=== PATIENT | male | born 1990 | race Caucasian/White ===

== ENCOUNTER 2017-05-29 12:49 | Emergency (ER) | payer OTHER ==
[~2017-05-29] VITALS: Ht 175.3 cm; Wt 65.8 kg
[~2017-05-29 12:49] MED LIST: AMOXICILLIN500 MG PO; BACTRIM DS TAB1 EACH PO; BENZONATATE200 M1 PO; CLINDAMYCIN300 MG PO; CYCLOBENZAPRINE10 M1 PO; GABAPENTIN300 M2 PO; HYDROCODONE/ACE1 TA1 PO; IBUPROFEN800 M1 PO; KEFLEX500 M1 PO; NAPROSYN500 M1 PO; PROVENTIL HFA6.7 GM INH; SERTRALINE HCL50 MG PO; VICODIN 5-3001 EACH PO; ZITHROMAX250 M2 PO
--- NOTE | 2017-05-29 13:56 | ED GI/GU/ABDOMINAL COMPLAINT ---
History of Present Illness General Chief Complaint: Abdominal Pain/Flank Pain Stated Complaint: ABD PAIN Source: patient Exam Limitations: no limitations Vital Signs & Intake/Output Vital Signs & Intake/Output Vital Signs Date Time Temp Pulse Resp B/P B/P Pulse O2 O2 Flow FiO2 Mean Ox Delivery Rate 05/29 1548 98.5 73 19 132/69 100 Room Air 05/29 1300 98.5 75 18 137/88 99 Room Air Allergies Coded Allergies: NO KNOWN ALLERGIES (08/24/15) Reconcile Medications Bupropion HCl (Bupropion XL) 300 MG TAB.ER.24H 1 TAB PO QAM MENTAL HEALTH ( Reported) Hyoscyamine (Levsin) 0.125 MG TABLET 1 TAB PO Q4 PRN ABDOMINAL SPASMS Methadone HCl 10 MG/ML ORAL.CONC 40 MG PO DAILY MAINTENCE (Reported) Ondansetron (Zofran Odt) 4 MG TAB.RAPDIS 1 TAB SL TID PRN NAUSEA Propranolol HCl 10 MG TABLET 1 TAB PO BID PRN ANXIETY (Reported) Quetiapine Fumarate 100 MG TABLET 1 TAB PO QPM SLEEP (Reported) Quetiapine Fumarate 50 MG TABLET 1 TAB PO QPM SLEEP (Reported) Triage Note: PT TO ED FOR INTERMITTENT SHARP ABD PAIN AND NAUSEA X 3 DAYS Triage Nurses Notes Reviewed? yes Onset: Gradual Duration: day(s): (3) Timing: no prior history Quality/Severity: cramping, sharpness Severity Numbers: 6 Location: left lower quadrant Radiation: no radiation Activities at Onset: none Past Sexual History: Unobtainable at this time No Modifying Factors: none HPI: Patient is a 26-year-old male presenting to the emergency department with chief complaint of lower abdominal pain crampy, intermittently sharp and stabbing a single amphetamine S3 days. Patient reports associated nausea but no vomiting. No change in bowel habits. No constipation or diarrhea. Denies taking anything to help with symptoms at home. Nothing seems to make it better or worse. No sick contacts or recent travel. Denies recent antibiotic use. Denies any abdominal surgeries in the past. Does not take any daily medications. No fevers or chills chest pain or shortness of breath. No blood in the stool. (Zoey Hassan) Past History Travel History Traveled to [place] past 21 day No Medical History Any Pertinent Medical History? 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 No (Zoey Hassan) Review of Systems Review of Systems Constitutional: Reports: no symptoms. Comments Review of systems: See HPI, All other systems negative. Constitutional, no weight loss HEENT: No visual changes no sore throat no congestion Cardiovascular: No chest pain ,palpitation , orthopnea or ankle swelling Skin, no jaundice no rashes Respiratory: No dyspnea cough sputum or hemoptysis GI: no vomiting : No dysuria No hematuria Muscle skeletal: no back pain, no neck pain, Neurologic: No numbness no confusion no headache Psych: No stress anxiety or depression,. Heme/endocrine: No bruising no bleeding no polyuria or polydipsia Immunology: No splenectomy or history of AIDS (Zoey Hassan) Physical Exam Physical Exam General Appearance: well developed/nourished, no apparent distress, alert, awake , comfortable Gastrointestinal: normal bowel sounds, soft, tenderness Comments: Well-developed well-nourished person in no acute distress HEENT: Normal atraumatic, normocephalic, moist oral mucosa. Neck: Normal inspection Back: Nontender, no CVA tenderness. Cardiovascular: Regular rate and rhythms no murmurs rubs or gallops, normal JVP Respiratory: Chest nontender. No respiratory distress.breath sounds clear to auscultation bilaterally Abdomen: Soft, mild tenderness to palpation in the left lower quadrant and periumbilical region without rebound or guarding, nondistended, no appreciable organomegaly. Normal bowel sounds. No ascites Extremity: No edema Neuro: Alert oriented x3 Skin: No appreciable rash on exposed skin, skin is warm and dry. Psych: Mood and affect is normal, memory and judgment is normal. Core Measures ACS in differential dx? No Sepsis Present: No Sepsis Focused Exam Completed? No (Zoey Hassan) Progress Differential Diagnosis: appendicitis, cholecystitis, diverticulitis, inflamm bowel dis, pancreatitis, ureterolithiasis, UTI/pyelo, gastritis, gastroenteritis Plan of Care: Orders Procedure Date/time Status URINALYSIS 05/29 141 Complete LIPASE 05/29 141 Complete C-REACTIVE PROTEIN 05/29 1409 Complete COMPREHENSIVE METABOLIC PANEL 05/29 1409 Complete CBC WITHOUT DIFFERENTIAL 05/29 1409 Complete Laboratory Tests 05/29/17 1548: Urine Color YEL, Urine Clarity CLEAR, Urine pH 6.0, Ur Specific [place] 1.025, Urine Protein NEG, Urine Ketones NEG, Urine Nitrite NEG, Urine Bilirubin NEG, Urine Urobilinogen 0.2, Ur Leukocyte Esterase NEG, Ur Microscopic EXAM NOT REQUIRED, Urine Hemoglobin NEG, Urine Glucose NEG 05/29/17 1428: Anion Gap 12, Estimated GFR > 60, BUN/Creatinine Ratio 10.0, Glucose 95, Calcium 9.6, Total Bilirubin 0.4, AST 58, ALT 184 H, Alkaline Phosphatase 53, C- Reactive Prot, Quant < 0.5, Total Protein 7.4, Albumin 4.6, Globulin 2.8, Albumin/Globulin Ratio 1.6, Lipase 62, CBC w Diff NO MAN DIFF REQ, RBC 4.74, MCV 91.5, MCH 30.0, RDW 14.2, MPV 7.7, Gran % 57.3, Lymphocytes % 34.5, Monocytes % 6.8, Eosinophils % 1.2, Basophils % 0.2, Absolute Granulocytes 4.0, Absolute Lymphocytes 2.4, Absolute Monocytes 0.5, Absolute Eosinophils 0.1, Absolute Basophils 0, PUBS MCHC 32.8 L 05/29/2017 4:19:11 PM patient feeling improved after IV Toradol and IV acetaminophen. Patient no longer nauseous. Tolerating by mouth without vomiting. Patient informed of all lab work results. I feel like we can hold off on imaging at this time his blood work is unremarkable and patient is nontender at this time. Patient educated on signs and symptoms return. He was informed that if symptoms persist or worsen he may need a CAT scan. Patient will return if symptoms worsen. I'll question Sansert. Initial ED EKG: none (Pedro MARSHALL,Zoey) Departure Departure Time of Disposition: 1615 Disposition: HOME OR SELF CARE Condition: Stable Clinical Impression Primary Impression: Abdominal pain Qualifiers: Abdominal location: left lower quadrant Qualified Code: R10.32 - Left lower quadrant pain Secondary Impressions: Nausea Referrals: Patient Has No Primary Care Dr (PCP/Family) Additional Instructions: Follow-up with your primary care physician in the next 2-4 days for reevaluation. Increase fluids. Take Zofran as prescribed for nausea. Take Levsin help with abdominal discomfort. Return for worsening symptoms or concerns. Departure Forms: Customer Survey D/C INS-APPENDICITIS EXCLUSION General Discharge Information Prescriptions: Current Visit Scripts Hyoscyamine (Levsin) 1 TAB PO Q4 PRN ABDOMINAL SPASMS #40 TAB Ondansetron (Zofran Odt) 1 TAB SL TID PRN NAUSEA #10 TAB (Zoey Hassan) PA/WAREHOUSE INCENTIVE SELECTOR Co-Sign Statement Statement: ED Attending supervision documentation- [] I saw and evaluated the patient. I have also reviewed all the pertinent lab results and diagnostic results. I agree with the findings and the plan of care as documented in the PA's/WAREHOUSE INCENTIVE SELECTOR's documentation. [X] I have reviewed the ED Record and agree with the PA's/WAREHOUSE INCENTIVE SELECTOR's documentation. [] Additions or exceptions (if any) to the PAs/WAREHOUSE INCENTIVE SELECTOR's note and plan are summarized below: [] (Micah Levy DO)
[2017-05-29] MEDS ORDERED: METHADONE10 MG/1 M2 PO (14:15)
[2017-05-29] MEDS ORDERED: QUETIAPINE FUM100 M1 PO (14:16)
[2017-05-29] MEDS ORDERED: QUETIAPINE FUMA50 M1 PO (14:16)
[2017-05-29] MEDS ORDERED: BUPROPION XL300 M1 PO (14:16)
[2017-05-29] MEDS ORDERED: PROPRANOLOL HCL10 M1 PO (14:17)
[2017-05-29 14:40] LABS: ABSOLUTE BASOPHIL COUNT 0 /CUMM (0.0-0.2); ABSOLUTE EOSINOPHIL COUNT 0.1 /CUMM (0.0-0.7); ABSOLUTE LYMPH COUNT 2.4 /CUMM (1.2-3.4); ABSOLUTE MONOCYTE COUNT 0.5 /CUMM (0.10-0.60); BASOPHIL % 0.2 % (0.0-2.0); EOSINOPHIL % 1.2 % (0-5); GRANULOCYTE % 57.3 % (42.2-75.2); HEMATOCRIT 43.3 % (42-52); MEAN CORPUSCULAR HGB CONC 32.8 G/DL (33.0-37.0); MEAN CORPUSCULAR VOLUME 91.5 FL (80.0-94.0); MEAN PLATELET VOLUME 7.7 FL (7.4-10.4); PLATELET COUNT 321 /CUMM (130-400); RBC DISTRIBUTION WIDTH 14.2 % (11.5-14.5); RED BLOOD CELL CT 4.74 /CUMM (4.70-6.10); WHITE BLOOD CELL COUNT 6.9 /CUMM (4.8-10.8)
[2017-05-29 15:48] VITALS: BP 132/69
[2017-05-29] MEDS ORDERED: LEVSIN0.125 M1 PO (16:17)
[2017-05-29] MEDS ORDERED: ZOFRAN ODT4 M1 SL (16:17)
== END 2017-05-29 16:45 ==
LOC: ERH 12:49
PROVIDERS: Physician Assistant
DX: R10.32 Left lower quadrant pain (principal); R10.33 Periumbilical pain; R11.0 Nausea
CPT/HCPCS: 81003; 96361; 96374; 96375; J0131; J1885; J2405

== ENCOUNTER 2017-07-09 18:02 | Inpatient (IN) | payer OTHER ==
[~2017-07-09] VITALS: Ht 175.3 cm; Wt 61.7 kg
[~2017-07-09 18:02] MED LIST changes: +BUPROPION XL300 M1 PO; +LEVSIN0.125 M1 PO; +METHADONE10 MG/1 M2 PO; +PROPRANOLOL HCL10 M1 PO; +QUETIAPINE FUM100 M1 PO; +QUETIAPINE FUMA50 M1 PO; +ZOFRAN ODT4 M1 SL
--- NOTE | 2017-07-09 18:54 | ED PSYCHIATRIC COMPLAINT ---
History of Present Illness General Chief Complaint: Psychiatric Related Complaint Stated Complaint: +SI Source: patient Exam Limitations: no limitations Vital Signs & Intake/Output Vital Signs & Intake/Output Vital Signs Date Time Temp Pulse Resp B/P B/P Pulse O2 O2 Flow FiO2 Mean Ox Delivery Rate 07/10 1135 99.0 88 18 120/63 99 Room Air 07/10 0741 98.5 74 18 114/62 98 Room Air 07/10 0625 98.5 68 18 109/57 99 Room Air 07/09 2233 98.3 77 20 117/59 98 Room Air 07/09 1845 Room Air 07/09 1812 98.6 114 18 162/100 98 Room Air ED Intake and Output 07/10 0000 07/09 1200 Intake Total Output Total Balance Patient 155 lb Weight Weight Reported by Patient Measurement Method Allergies Coded Allergies: NO KNOWN ALLERGIES (08/24/15) Reconcile Medications Bupropion HCl (Bupropion XL) 300 MG TAB.ER.24H 1 TAB PO QAM MENTAL HEALTH ( Reported) Methadone HCl 10 MG/ML ORAL.CONC 50 MG PO DAILY MAINTENCE (Reported) Multiple Vitamin (Multivitamins) 1 EACH TABLET 1 TAB PO DAILY SUPPLEMENT ( Reported) Propranolol HCl 10 MG TABLET 1 TAB PO BID PRN ANXIETY (Reported) Quetiapine Fumarate 100 MG TABLET 1 TAB PO QPM SLEEP (Reported) Quetiapine Fumarate 50 MG TABLET 1 TAB PO QPM SLEEP (Reported) Quetiapine Fumarate (Seroquel) 25 MG TABLET 1 TAB PO DAILY PRN ANXIETY ( Reported) Triage Note: 26 YO MALE TO TRIAGE FOR +SI. STATES HE HAS BEEN HOMELESS FOR 2 MONTHS AND HE HAS BEEN USING HEROIN AND COCAINE. STATES HE HAS BEEN OFF HIS PSYCH MEDS FOR AWHILE. PLAN TO HARM SELF WOULD BE TO OVERDOSE PER PT. DENIES ALCOHOL USE. PT CALM AND COOPERATIVE. Triage Nurses Notes Reviewed? yes Onset: Gradual Duration: day(s): (2-3), constant, continues in ED, getting worse Timing: single episode today Severity: moderate, severe Associated Symptoms: anxiety, suicidal ideation HPI: 26-year-old male past medical history of polysubstance abuse and depression presents for evaluation of suicidal ideation. Patient states that he is having thoughts of wanting to hurt himself. He states that he would overdose on drugs. He states that his drug use is the reason for this. He states that he is addicted to multiple drugs including cocaine and heroin. He reports that he feels worthless because of his drug use. He reports a previous history of depression and was prescribed medication but is noncompliant with them. He has not taken any medications in several months. He denies any hallucinations. No chest pain or shortness of breath. He denies any history of withdrawal seizures. No alcohol use. (Aime Banerjee) Past History Travel History Traveled to [place] past 21 day No Medical History Any Pertinent Medical History? 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 No (Aime Banerjee) Review of Systems Review of Systems Constitutional: Reports: no symptoms. EENTM: Reports: no symptoms. Respiratory: Reports: no symptoms. Cardiovascular: Reports: no symptoms. GI: Reports: no symptoms. Genitourinary: Reports: no symptoms. Musculoskeletal: Reports: no symptoms. Skin: Reports: no symptoms. Neurological/Psychological: Reports: see HPI, anxiety. Hematologic/Endocrine: Reports: no symptoms. Immunologic/Allergic: Reports: no symptoms. All Other Systems: Reviewed and Negative (Aime Banerjee) Physical Exam Physical Exam General Appearance: well developed/nourished, no apparent distress, alert, awake , anxious Head: atraumatic, normal appearance Eyes: Bilateral: normal appearance, PERRL, EOMI. Ears, Nose, Throat: normal pharynx, normal ENT inspection, hearing grossly normal Neck: normal inspection, supple, full range of motion Respiratory: normal breath sounds, chest non-tender, no respiratory distress, lungs clear Cardiovascular: regular rate/rhythm, normal peripheral pulses Gastrointestinal: normal bowel sounds, soft, non-tender, no organomegaly Extremities: normal range of motion Neurological/Psychiatric: no motor/sensory deficits, awake, alert, anxious, calm Appearance/Memory/Insight: disheveled Behavoir/Eye Contact/Speech: cooperative, normal speech, good eye contact Thoughts/Hallucinations: normal thought pattern, no apparent hallucination Skin: intact, normal color, warm/dry SAD PERSONS SAD PERSONS Response Value Male Sex? yes 1 Depression/Hopelessness? yes 2 Excessive Ethanol/Drug Use? yes 1 Rational Thinking Loss? yes 2 Single//? yes 1 Organized/Serious Attempt yes 2 Social Support? has support 0 Total 9 SAD PERSONS Done? yes (Madhav MARSHALL,Aime) Progress Differential Diagnosis: dementia, drug intoxication, drug overdose, drug withdrawal, electrolyte abnormality Plan of Care: Orders Procedure Date/time Status Regular Diet 07/10 D Active Regular Diet 07/10 B Complete Admit to inpatient psych 07/10 1226 Active Lab Add-on Test 07/10 1209 Active Patient Data - inpatient psych 07/10 1203 Active Admit to inpatient psych 07/10 1203 Active Vital Signs 07/10 UNK Active Nursing Misc 07/10 UNK Active Alternative Nursing Therapy 07/10 UNK Active Activity/Ambulation 07/10 UNK Active Add-on Test (ER Only) 07/09 2019 Active EKG 07/09 2019 Active TSH REFLEX 07/09 190 Active TROPONIN LEVEL 07/09 190 Active LIPID PANEL 07/09 190 Active HEPATITIS PANEL 07/09 190 Active GLYCOSYLATED HGB 07/09 190 Active Continuous Observation Monitor 07/09 181 Active URINE DRUG SCREEN FOR ER ONLY 07/09 1811 Complete URINALYSIS 07/09 181 Complete ETHANOL 07/09 181 Active COMPREHENSIVE METABOLIC PANEL 07/09 181 Active CBC WITHOUT DIFFERENTIAL 07/09 1811 Complete ED CRISIS PSYCH CONSULT 07/09 181 Active Current Medications Sig/Nilay Start time Last Medication Dose Stop Time Status Admin Methadone HCl 30 MG ONCE ONE 07/14 08 AC (Dolophine) 07/14 800 Methadone HCl 35 MG ONCE ONE 07/13 08 AC (Dolophine) 07/13 800 Methadone HCl 40 MG ONCE ONE 07/12 08 AC (Dolophine) 07/12 08 Methadone HCl 45 MG ONCE ONE 07/11 08 AC (Dolophine) 07/11 08 Acetaminophen 650 MG Q6P PRN 07/10 1215 AC (Tylenol) Al Hydroxide/Mg 30 ML Q4-6 PRN PRN 07/10 1215 AC Hydroxide (Maalox Plus) Benztropine Mesylate 1 MG Q6P PRN 02/22 1215 AC (Cogentin 1 MG Tablet) Benztropine Mesylate 1 MG Q6P PRN 07/10 1214 AC (Cogentin) Gabapentin 300 MG Q6P PRN 07/10 1214 AC (Neurontin) Haloperidol 5 MG Q6P PRN 07/10 1214 AC (Haldol) Haloperidol 5 MG Q6P PRN 07/10 1214 AC (Haldol) Lorazepam 2 MG Q6P PRN 07/10 1214 AC (Ativan) Magnesium Hydroxide 30 ML AT BEDTIME PRN 07/10 1214 AC (Milk Of Magnesia) Nicotine 2 MG Q2P PRN 07/10 1214 AC (Nicotine) Trazodone HCl 50 MG AT BEDTIME NEED.. 07/10 1214 AC (Desyrel) Laboratory Tests 07/09/171914: Urine Opiates Screen > 4000.00 H, Methadone Screen > 735 H, Barbiturate Screen 98, Ur Phencyclidine Scrn 7.60, Amphetamines Screen 369, U Benzodiazepines Scrn 329 H, Urine Cocaine Screen > 1000 H, Urine Cannabis Screen 79.90 H, Urine Color YEL, Urine Clarity CLEAR, Urine pH 6.0, Ur Specific [place] >= 1.030, Urine Protein NEG, Urine Ketones TRACE H, Urine Nitrite NEG, Urine Bilirubin NEG, Urine Urobilinogen 1.0, Ur Leukocyte Esterase NEG, Ur Microscopic EXAM NOT REQUIRED, Urine Hemoglobin NEG, Urine Glucose NEG 07/09/17 190: Anion Gap 12, Estimated GFR > 60, BUN/Creatinine Ratio 13.3, Glucose 88, Hemoglobin A1c Pending, Calcium 9.9, Total Bilirubin 0.3, AST 55, ALT 130 H, Alkaline Phosphatase 56, Troponin I < 0.01, Total Protein 7.5, Albumin 4.7, Globulin 2.8, Albumin/Globulin Ratio 1.7, Triglycerides Pending, Cholesterol Pending, LDL Cholesterol, Calc Pending, HDL Cholesterol Pending, Cholesterol/HDL Ratio Pending, TSH &T3 &Free T4 Intrp Pending, CBC w Diff NO MAN DIFF REQ, RBC 4.51 L, MCV 90.6, MCH 29.8, MCHC 32.9 L, RDW 14.1, MPV 8.1, Gran % 78.6 H, Lymphocytes % 16.4 L, Monocytes % 4.9, Eosinophils % 0, Basophils % 0.1, Absolute Granulocytes 8.7 H, Absolute Lymphocytes 1.8, Absolute Monocytes 0.5, Absolute Eosinophils 0, Absolute Basophils 0, Hepatitis A IgM Ab Pending, Hep Bs Antigen Pending, Hep B Core IgM Ab Conf Pending, Hepatitis C Antibody Pending, Serum Alcohol < 10.0 Patient seen and evaluated. He is reporting thoughts of suicide and depression and polysubstance abuse. He is suicidal with a plan. He'll be seen by crisis will check basic labs. Because he is reporting cocaine use and also get an EKG and troponin. blood Work is within normal limits. Patient cleared to see crisis. Patient will be signed out to Dr. Fagan pending crisis evaluation. 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 Patient resting comfortably. (Micah Acosta MD) Departure Departure Disposition: STILL A PATIENT Condition: Stable Referrals: Patient Has No Primary Care Dr (PCP/Family) Departure Forms: Customer Survey General Discharge Information (Aime Banerjee) PA/FIRE LIEUTENANT MARINE Co-Sign Statement Statement: ED Attending supervision documentation- x I saw and evaluated the patient. I have also reviewed all the pertinent lab results and diagnostic results. I agree with the findings and the plan of care as documented in the PA's/FIRE LIEUTENANT MARINE's documentation. [] I have reviewed the ED Record and agree with the PA's/FIRE LIEUTENANT MARINE's documentation. [] Additions or exceptions (if any) to the PAs/FIRE LIEUTENANT MARINE's note and plan are summarized below: [] (Oswald Fagan MD) Departure Clinical Impression Primary Impression: Depression Qualifiers: Depression Type: unspecified Qualified Code: F32.9 - Major depressive disorder, single episode, unspecified Secondary Impressions: Polysubstance abuse, Suicidal ideation (Micah Acosta MD) ED Attending Observation Initial Observation Note: I have seen and personally examined GISSELLE CABRERA on 07/10/17 at 0129. I agree with the current emergency department documentation. The disposition (admission or discharge) is uncertain at this time, he needs a period of observation for the following reason(s): The ED Nurse caring for this patient has been personally informed as to what the patient is being observed for. (Madhav MARSHALL,Aime)
[2017-07-09] MEDS ORDERED: MULTIVITAMINS1 EAC9 PO (19:19)
[2017-07-09] MEDS ORDERED: SEROQUEL25 M1 PO (19:19)
[2017-07-09 19:44] LABS: ABSOLUTE BASOPHIL COUNT 0 /CUMM (0.0-0.2); ABSOLUTE EOSINOPHIL COUNT 0 /CUMM (0.0-0.7); ABSOLUTE GRANULOCYTE CT 8.7 /CUMM (1.4-6.5); ABSOLUTE LYMPH COUNT 1.8 /CUMM (1.2-3.4); ABSOLUTE MONOCYTE COUNT 0.5 /CUMM (0.10-0.60); BASOPHIL % 0.1 % (0.0-2.0); EOSINOPHIL % 0 % (0-5); GRANULOCYTE % 78.6 % (42.2-75.2); HEMATOCRIT 40.9 % (42-52); MEAN CORPUSCULAR HGB 29.8 PG (27.0-31.0); MEAN CORPUSCULAR HGB CONC 32.9 G/DL (33.0-37.0); MEAN CORPUSCULAR VOLUME 90.6 FL (80.0-94.0); MEAN PLATELET VOLUME 8.1 FL (7.4-10.4); PLATELET COUNT 276 /CUMM (130-400); RBC DISTRIBUTION WIDTH 14.1 % (11.5-14.5); RED BLOOD CELL CT 4.51 /CUMM (4.70-6.10); WHITE BLOOD CELL COUNT 11.1 /CUMM (4.8-10.8)
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
[2017-07-10 14:34] VITALS: BP 129/58
[2017-07-10 14:54] VITALS: BP 129/58
[2017-07-10 16:12] VITALS: BP 122/59
[2017-07-10 20:14] VITALS: BP 129/72
[2017-07-10 20:17] VITALS: BP 129/72
[2017-07-11 07:37] VITALS: BP 111/57
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
[2017-07-11 08:58] VITALS: BP 111/57
--- NOTE | 2017-07-11 11:08 | SOCIAL WORKER PROG NOTE PSYCH ---
Social Work Progress Note Progress Note Raji was in his room this morning. Prompted him to get up and meet with me. He said he would rather do it later. I asked what was going on? He said he just felt really tired and was trying to get more sleep. I told him I really would prefer in we could meet now. He ended up getting up and coming to my office. Said he slept okay last night. Shared that he had been at [facility] residential rehab for 3 months. He was discharged in March and had been doing well for a month, but then relapsed and had been using since. He was urged to come in and get help by his fiance Sarah Rangel. He said he had been pushing it off, but knew he needed help. He has been using crack cocaine 2-3 grams every day or so and heroin weekly any amount between 3-8 bags. He injects the heroin. He is not aware of any time he has OD'd. He reports being on the list for [facility] and that he just hasn't been able to get in there due to [facility] not switching his methadone to the [facility]. He reports some mental health issues, such as depression and anxiety. Rates his anxiety on a scale between 1-10 (10, being worst) as a 6 today. Depression a 7 (same scale). He is not suicidal, but shares that when he uses he starts thinking about dying. He said he feels hopeless and desperate to end things. Besides depression and anxiety he reports feelings of low energy and hopelessness. Talked about trying to get a job and hasn't been successful at that which then causes him to want to use. 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 He reports that his living environment has been a significant factor in his mental health. He had been living with his Mom, but reports that his Mom has started using Crack herself. He can't return to her home. He does view her as a significant support to him. He signed a release for her and for his fiance. He is hoping he can go to [facility] directly from here. I told him I would reach out to them. Called [facility] and spoke with Cassi in admissions. She said he is on their list and that the only reason he hadn't come in is because they were waiting for the methadone to switch over to [facility] in [place]. I told her I would call [facility] to figure out what is going on with that. They will have male beds open next week. They requested updated clinical be faxed to [phone].
--- NOTE | 2017-07-11 11:34 | IP INCIDENTAL NOTE PSYCH ---
Incidental Note Notation: Treatment Plan (Continued): D/C CIWA Klonopin 1.5 mg tonight, 1 mg tomorr night, and 0.5 mg Friday night Resume Seroquel 50 mg at bedtime Start Sertraline 50 mg daily D/C Trazodone (he reported nightmares with it) PRN Seroquel for anxiety or agitation Dr. Liang will evaluate patient and medications for the weekend
[2017-07-11 11:48] VITALS: BP 104/71
[2017-07-11 16:01] VITALS: BP 103/51
--- NOTE | 2017-07-11 16:11 | History & Physical ---
General Information and HPI MD Statement: I have seen and personally examined GISSELLE CABRERA and documented this H&P. The patient is a 26 year old M who presented with a patient stated chief complaint of Polysubstance use, SI. Source of Information: patient Exam Limitations: no limitations History of Present Illness: 26-year-old male with past medical history significant for drug abuse, on methadone, ch pain issue, is admitted to [facility] with polysubstance use, SI. Patient was using crack cocaine and heroin. His Fiance made him come because "he was at the verge of dying". Patient had SI with thoughts of overdose. Patient otherwise denies any fevers, chills, nausea, vomiting, urinary complaints, diarrhea constipation. He is a current smoker and wants to get started on nicotine patch. Allergies/Medications Allergies: Coded Allergies: NO KNOWN ALLERGIES (08/24/15) Home Med list Bupropion HCl (Bupropion XL) 300 MG TAB.ER.24H 1 TAB PO QAM MENTAL HEALTH ( Reported) Methadone HCl 10 MG/ML ORAL.CONC 50 MG PO DAILY MAINTENCE (Reported) Multiple Vitamin (Multivitamins) 1 EACH TABLET 1 TAB PO DAILY SUPPLEMENT ( Reported) Propranolol HCl 10 MG TABLET 1 TAB PO BID PRN ANXIETY (Reported) Quetiapine Fumarate 100 MG TABLET 1 TAB PO QPM SLEEP (Reported) Quetiapine Fumarate 50 MG TABLET 1 TAB PO QPM SLEEP (Reported) Quetiapine Fumarate (Seroquel) 25 MG TABLET 1 TAB PO DAILY PRN ANXIETY ( Reported) Past History Travel History Traveled to [place] past 21 day No Medical History Neurological: NONE EENT: NONE Cardiovascular: NONE Respiratory: NONE Gastrointestinal: NONE Hepatic: HEP C Renal: NONE Musculoskeletal: sciatica Psychiatric: NONE Endocrine: NONE Blood Disorders: NONE Cancer(s): NONE 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 Other ETOH Use: denies use Illicit Drug Use: cocaine, heroin Employment History Employment Unemployed Review of Systems Review of Systems Constitutional: Reports: see HPI. EENTM: Reports: see HPI. Cardiovascular: Reports: see HPI. Respiratory: Reports: see HPI. GI: Reports: see HPI. Musculoskeletal: Reports: see HPI. Neurological/Psychological: Reports: see HPI. Exam & Diagnostic Data Last 24 Hrs of Vital Signs/I&O Vital Signs Date Time Temp Pulse Resp B/P B/P Pulse O2 O2 Flow FiO2 Mean Ox Delivery Rate 07/11 1601 65 103/51 07/11 1148 72 104/71 07/11 0858 96.6 68 111/57 07/11 0737 96.6 68 11157 07/10 2016 97.9 66 129/72 07/10 2013 97.9 66 129/72 07/10 1612 53 122/59 Physical Exam General Appearance Alert, Oriented X3, Cooperative, No Acute Distress Skin No Rashes HEENT PERRLA Neck Supple Cardiovascular Regular Rate, Normal S1, Normal S2 Lungs Clear to Auscultation Abdomen Normal Bowel Sounds, Soft, No Tenderness Neurological Cranial Nerves II through XII: intact Last 24 Hrs of Labs/Kendrick: Laboratory Tests 07/09 1914 Toxicology Urine Opiates Screen (>2000 NG/ML) > 4000.00 H Methadone Screen (>300 NG/ML) > 735 H Barbiturate Screen (>200 NG/ML) 98 Ur Phencyclidine Scrn (>25 NG/ML) 7.60 Amphetamines Screen (>1000 NG/ML) 369 U Benzodiazepines Scrn (>200 NG/ML) 329 H Urine Cocaine Screen (>300 NG/ML) > 1000 H Urine Cannabis Screen (>50 NG/ML) 79.90 H Urines Urine Color (YEL,AMB,STR) YEL Urine Clarity (CLEAR) CLEAR Urine pH (5.0 - 8.0) 6.0 Ur Specific [place] (1.001 - 1.035) >= 1.030 Urine Protein (NEG,<30 MG/DL) NEG Urine Ketones (NEG) TRACE H Urine Nitrite (NEG) NEG Urine Bilirubin (NEG) NEG Urine Urobilinogen (0.1 - 1.0 EU/dl) 1.0 Ur Leukocyte Esterase (NEG) NEG Ur Microscopic EXAM NOT REQUIRED Urine Hemoglobin (NEG) NEG Urine Glucose (N MG/DL) NEG 07/09 1906 Chemistry Sodium (137 - 145 mmol/L) 141 Potassium (3.5 - 5.1 mmol/L) 4.1 Chloride (98 - 107 mmol/L) 103 Carbon Dioxide (22 - 30 mmol/L) 26 Anion Gap (5 - 16) 12 BUN (9 - 20 mg/dL) 12 Creatinine (0.7 - 1.2 mg/dL) 0.9 Estimated GFR (>60 ml/min) > 60 BUN/Creatinine Ratio (7 - 25 %) 13.3 Glucose (65 - 99 mg/dL) 88 Hemoglobin A1c (4.2 - 5.8 %) 5.4 Calcium (8.4 - 10.2 mg/dL) 9.9 Total Bilirubin (0.2 - 1.3 mg/dL) 0.3 AST (17 - 59 U/L) 55 ALT (21 - 72 U/L) 130 H Alkaline Phosphatase (< 127 U/L) 56 Troponin I (<0.11 ng/ml) < 0.01 Total Protein (6.3 - 8.2 g/dL) 7.5 Albumin (3.5 - 5.0 g/dL) 4.7 Globulin (1.9 - 4.2 gm/dL) 2.8 Albumin/Globulin Ratio (1.1 - 2.2 %) 1.7 Triglycerides (<150 mg/dL) 91 Cholesterol (< 200 MG/DL) 136 LDL Cholesterol, Calc (65 - 129 mg/dL) 61 L HDL Cholesterol (40 - 60 mg/dL) 57 Cholesterol/HDL Ratio (0.00 - 4.88 %) 2 TSH &T3 &Free T4 Intrp (0.27 - 4.20 uIU/mL) 1.130 Hematology CBC w Diff NO MAN DIFF REQ WBC (4.8 - 10.8 /CUMM) 11.1 H RBC (4.70 - 6.10 /CUMM) 4.51 L Hgb (14.0 - 18.0 G/DL) 13.4 L Hct (42 - 52 %) 40.9 L MCV (80.0 - 94.0 FL) 90.6 MCH (27.0 - 31.0 PG) 29.8 MCHC (33.0 - 37.0 G/DL) 32.9 L RDW (11.5 - 14.5 %) 14.1 Plt Count (130 - 400 /CUMM) 276 MPV (7.4 - 10.4 FL) 8.1 Gran % (42.2 - 75.2 %) 78.6 H Lymphocytes % (20.5 - 51.1 %) 16.4 L Monocytes % (1.7 - 9.3 %) 4.9 Eosinophils % (0 - 5 %) 0 Basophils % (0.0 - 2.0 %) 0.1 Absolute Granulocytes (1.4 - 6.5 /CUMM) 8.7 H Absolute Lymphocytes (1.2 - 3.4 /CUMM) 1.8 Absolute Monocytes (0.10 - 0.60 /CUMM) 0.5 Absolute Eosinophils (0.0 - 0.7 /CUMM) 0 Absolute Basophils (0.0 - 0.2 /CUMM) 0 Serology Hepatitis A IgM Ab (NONREACTIVE) NONREACTIVE Hep Bs Antigen (NONREACTIVE) NONREACTIVE Hep B Core IgM Ab Conf (NONREACTIVE) NONREACTIVE Hepatitis C Antibody (NONREACTIVE) REACTIVE H Toxicology Serum Alcohol (<10 MG/DL) < 10.0 Assessment/Plan Assessment: 26-year-old male with history significant for chronic pain, methadone pendant, polysubstance use was admitted to Inpatient Psychiatry with polysubstance use as well as suicidal ideation. We'll order nicotine patch. Patient has hepatitis C antibody positive. Patient should follow with [facility] as an outpatient. Patient does have slightly high ALT level on the LFTs. He is asymptomatic though. For the psych management would be up to psychiatry. As Ranked By This Provider Problem List: 1. Sciatica 2. Low back pain 3. Polysubstance abuse 4. Suicidal ideation Miscellaneous Miscellaneous Documentation Attending Case Discussed With: Haley Long MD Primary Care Physician: Patient Has No Primary Care Dr Patient sees these Specialists none Level of Patient Care: LISA Armas
[2017-07-11 20:00] VITALS: BP 115/60
[2017-07-12 07:55] VITALS: BP 91/52
[2017-07-12 12:34] VITALS: BP 118/54
--- NOTE | 2017-07-12 12:43 | CP SOUTH PROGRESS NOTE PSYCH ---
Psych (Inpt) Progress Note Progress Note Include the following elements, when applicable: Involvement in the active treatment of the patient with behavioral observations of the patient and the patient's response to the treatment. Review of the ongoing treatment process in the context of the treatment plan. Indication of how multi-disciplinary staff members are carrying out the treatment plan. Plans for future interventions and recommendations for revision of the treatment plan. Liaison with other physicians/providers. Progress Note: Chart reviewed, progress discussed with nursing staff. Interviewed patient this morning. Pleasant, no complaints. Denied any needs. Reports mood is improving. Reports sleeping well last night, denies any SI or HI at this time. Denies any auditory visual hallucinations. Denies any medication side effects. Vital signs were within normal limits. No new laboratory results today. Mental status exam: man of apparent stated age, adequately groomed. No abnormal movements. No psychomotor retardation or agitation. Speech was within normal limits. Mood was "okay ", affect was mildly constricted. Thought process was within normal limits. Thought content within normal limits. Denies SI or HI. Denies any perceptual disturbances. Cognition was grossly intact. Insight and judgment were fair. Assessment and plan: Mood slowly improving. Continue present management, including ongoing methadone taper.
[2017-07-12 15:52] VITALS: BP 130/66
[2017-07-12 19:41] VITALS: BP 126/61
[2017-07-13 08:00] VITALS: BP 106/51
[2017-07-13 12:16] VITALS: BP 122/65
--- NOTE | 2017-07-13 12:37 | CP SOUTH PROGRESS NOTE PSYCH ---
Psych (Inpt) Progress Note Progress Note Include the following elements, when applicable: Involvement in the active treatment of the patient with behavioral observations of the patient and the patient's response to the treatment. Review of the ongoing treatment process in the context of the treatment plan. Indication of how multi-disciplinary staff members are carrying out the treatment plan. Plans for future interventions and recommendations for revision of the treatment plan. Liaison with other physicians/providers. Progress Note: Chart reviewed. Progress discussed with nursing staff. Interviewed patient this morning at length. Very pleasant and cooperative, reports mood is "pretty good ", reports tolerating methadone taper adequately, "though when it gets down a little bit lower I'll be craving to use ". He reports his interest in resuming Suboxone maintenance rather than methadone maintenance, notes that previously he has been on Suboxone, 8 mg, but was quite forthcoming with stating that he was kicked out of his program when he was found to be using multiple other substances. We discussed various pharmacological treatments for depression and anxiety, making it clear that benzodiazepines are not appropriate long-term treatment option for him given his history of substance abuse. He is interested in continuing sertraline while up titrating Seroquel to target mood and anxiety. He recalls that he previously was taking a low dose of propranolol as needed for anxiety, and requests to trial this again. We discussed the risks of this medication which include primarily syncope or presyncope, which he understands and agrees with the trial. He denies AVH, and denies suicidal or homicidal ideation. He is interested in follow-up treatment at [facility] if possible. Vital signs were reviewed and are within normal limits. There are no new laboratory results today. Mental status exam: man of apparent stated age, adequately groomed. No abnormal movements. No psychomotor retardation or agitation. Good eye contact and pleasant interaction. Speech was within normal limits. Mood was "pretty good", affect was approaching euthymia. Thought process was logical and linear. Thought content within normal limits, perhaps a bit focused on psychopharmacology. Denies SI or HI. Denies any perceptual disturbances. Cognition was grossly intact. Insight and judgment were fair. Assessment and plan: Mood slowly improving. Continue benzo and methadone taper. Uptitrate seroquel to 100 mg nightly. Will trial propranolol for anxiety given patient's reported previous good response.
[2017-07-13 16:05] VITALS: BP 116/65
[2017-07-13 19:50] VITALS: BP 124/69
[2017-07-14 07:44] VITALS: BP 117/61
--- NOTE | 2017-07-14 08:11 | CP SOUTH PROGRESS NOTE PSYCH ---
Psych (Inpt) Progress Note Progress Note Vital Signs Date Time Temp Pulse B/P O2 Flow FiO2 Rate 07/14 0744 96.3 65 117/61 07/13 1950 97.6 74 124/69 07/13 1605 68 116/65 07/13 1216 74 122/[address] Liang's progress notes from the weekend. The patient's progress and treatment/aftercare plans were reviewed in the treatment team meeting this morning. Treatment team included: Nursing, social work, group therapy and activity therapy staff, and psychiatrist There are no new laboratory results today. Mental Status exam: The patient was alert. he was oriented to time, place, and person. He was cooperative, he reported that his withdrawals with current methadone taper adequately, he denied having hallucinations denied suicidal or homicidal ideation, he is interested in follow-up treatment at [facility] if possible, no abnormal movements. No psychomotor retardation or agitation, good eye contact and pleasant interaction. Speech was within normal limits, mood was "pretty good", logical and linear. Thought content within normal limits, Denies SI or HI. Denies any perceptual disturbances. Cognition was grossly intact. Assessment and plan: Mood slowly improving. Patient is motivated to engage in treatment Risk Factors: High Anxiety/Distress, SA/MH Hospitalization(s), Hx of suicide attempt(s), Isolated/no social suppor, Lives alone, Male, Poor impulse control
[2017-07-14 12:16] VITALS: BP 107/54
--- NOTE | 2017-07-14 12:55 | SOCIAL WORKER PROG NOTE PSYCH ---
Social Work Progress Note Progress Note Called [facility] in [place] to clarify taking new patients. I was informed that they need at least 2 weeks notice and that they don't take people before that. She said we have 48 hours to complete a request/ packet and that we would then call 24 hours later to follow up with Neelam. Attempted to call Kevin a couple of times to discuss a plan. Raji was informed of the above information and also would like to inquire if Kevin can switch him over to Suboxone. I told him I would ask about it. Raji stated he was at 30mg of Methadone today and was hoping not to continue to taper at this point. If he remains on Methadone he is open to transferring to [facility] if he has to wait a couple weeks before getting into [facility]. Mood seems good today. Reports he is doing okay. Stated he is interested in trying Abilify if possible. He thinks it would be good to stabilize his mood. He reports not being on a mood stabilizer in the past. He would like to talk more with the doctor about it. Asked if he was going to groups? He said he is going to a couple of groups depending on topic. Reports trying to catch up on sleep. He said he was looking to get HIV and STD testing. He had asked the doctor if he could be tested, due to not being tested in a while.
[2017-07-14 16:11] VITALS: BP 127/59
[2017-07-14 19:48] VITALS: BP 144/67
[2017-07-15 08:08] VITALS: BP 103/67
--- NOTE | 2017-07-15 08:58 | CP SOUTH PROGRESS NOTE PSYCH ---
Psych (Inpt) Progress Note Progress Note Laboratory Tests 07/15 06 Hep Bs Antigen (NONREACTIVE) Pending Hep Bs Antibody (NONREACTIVE) REACTIVE HIV 1&2 Ab Western Blot (NONREACTIVE) Pending Vital Signs Date Time Temp Pulse B/P FiO2 07/15 0808 97.3 64 103/67 07/14 1948 97.5 68 144/67 07/14 1611 67 127/59 07/14 1313 66 107/54 The patient's progress and treatment/aftercare plans were reviewed in the treatment team meeting this morning (Treatment team included: Nursing, Social work, group therapy and activity therapy staff, and psychiatrist). The HIV and Hepatitis B titer results are pending. Mental Status Examination: The patient was alert. He was oriented to time, place, and person. He was cooperative, he reported that he is doing well with minimal withdrawals, he denied having hallucinations, he denied suicidal or homicidal ideation, he is interested in follow-up treatment at [facility] if possible, no abnormal movements. The patient has not shown signs of agitation. Speech was within normal limits, mood was "pretty good", Brians thoughts were logical and linear. He denies SI or HI. He denies any perceptual disturbances. Cognition was grossly intact. Assessment: Raji Mehtarommeljuana is a Mood slowly improving. Patient is motivated to engage in treatment The identified risk factors for suicide and/or violence/homicide: High Anxiety/Distress, SA/MH Hospitalization(s), Hx of suicide attempt(s), Isolated/no social support/Lives alone, Male, Poor impulse control Plan Update: Continue Methadone HCl 30 MG 0800 Continue Nicotine 21 MG DAILY Nicotine 2 MG Q2P PRN Continue Propranolol HCl 10 MG Q8 PRN Continue Quetiapine Fumarate 100 MG AT BEDTIME Continue Quetiapine Fumarate 25 MG Q4P PRN Continue Sertraline HCl 100 MG Q0800 Magnesium Hydroxide 30 ML AT BEDTIME PRN 07/10 1215 AC Methadone HCl 30 MG 0800 07/15 0800 AC 07/15 PO 0814 Methadone HCl 30 MG ONCE ONE 07/14 1300 CAN PO 07/14 1301 Midazolam HCl 2 MG .STK-MED ONE 07/14 1133 DC Nicotine 2 MG .STK-MED ONE 07/14 2145 DC PO 07/14 2146 Nicotine 21 MG DAILY 07/11 1610 AC 07/15 TOP 0814 Nicotine 2 MG Q2P PRN 07/10 1215 AC 07/15 PO 0917 Propranolol HCl 10 MG Q8 PRN 07/13 1030 AC 07/14 PO 1313 Quetiapine Fumarate 100 MG AT BEDTIME 07/13 2200 AC 07/14 PO 2142 Quetiapine Fumarate 25 MG Q4P PRN 07/11 1130 AC 07/13 PO 1207 Sertraline HCl 100 MG 07/15 0800 AC 07/15 PO 0814 Sertraline HCl 50 MG 07/12 0800 DC 07/14 PO 0749
[2017-07-15 12:02] VITALS: BP 120/61
--- NOTE | 2017-07-15 13:29 | SOCIAL WORKER PROG NOTE PSYCH ---
Social Work Progress Note Progress Note Referral faxed to [facility]
[2017-07-15 16:04] VITALS: BP 106/51
--- NOTE | 2017-07-15 16:46 | SOCIAL WORKER PROG NOTE PSYCH ---
Social Work Progress Note Progress Note Called Cassi at [facility] to discuss the issues around Raji getting connected to [facility]. She didn't have any suggestions to move things along any faster. I asked if it was possible to switch him over to Suboxone and what the process would be for that? She said she would need to discuss that with the team and get back to me. Met with Raji. He reported no specific concerns today. We discussed continued planning towards d/c. He signed the [facility] referral for [facility]. We faxed that over today. He reports no cravings to use, due to being in the hospital. He said his issue is needing to stay busy. Talked to Trinh counselor at [facility]. She said she has been trying to work with [facility] to get things moving, but she said [facility] has been frustrating to work with, stating they lose paperwork ect.. She suggested we look at Raji going to [facility]. She has been trying to talk to the admission coordinator there. I told her I was waiting to hear back from [facility], but in the meantime I will discuss a referral to [facility] with Raji.
[2017-07-15 20:02] VITALS: BP 130/67
[2017-07-16 07:47] VITALS: BP 101/63
--- NOTE | 2017-07-16 08:08 | CP SOUTH PROGRESS NOTE PSYCH ---
Psych (Inpt) Progress Note Progress Note Vital Signs Date Time Temp Pulse B/P Pulse O2 O2 Flow FiO2 Ox Delivery Rate 07/16 0747 96.5 78 101/63 07/15 2001 97.4 72 130/67 07/15 1604 75 106/51 07/15 1202 69 120/61 07/15 0808 97.3 64 103/67 The patient's progress and treatment plan (including aftercare plans) were reviewed in the treatment team meeting this morning (Treatment team included: Nursing, Social work, Group therapy and activity therapy staff, and psychiatrist ). The HIV was non-reactive, Hepatitis B Antigen was non-reactive, pt. has antidodies, will inquire about vaccination vs. other exposure Mental Status Examination: The patient was alert. He was oriented to time, place, and person. He was cooperative, he reported that he is doing well with minimal withdrawals (sweats, chills, general body aches). Raji denied having hallucinations, he denied suicidal or homicidal ideation, he is interested in follow-up treatment at [facility] if possible, no abnormal movements. The patient has not shown signs of agitation. His speech was within normal limits, mood was "good"/not that depressed. Ladonna thoughts were logical and linear. He denies SI or HI. He denies any perceptual disturbances. Cognition was grossly intact. Summary and Risk Assessment: Raji Neri is a 26-year-old single white male who was admitted on 2017 for thoughts of suicide. Raji's mood has improved significantly, he is no longer voicing thoughts of suicide. The identified risk factors for suicide and/or violence/homicide are: 1) Raji was voicing thoughts of suicide recently 2) Raji has a history of severe substance use disorder 3) Raji-reportedly- has a history of a suicide attempt 4) Raji has been isolated/minimal social support/Lives alone, 5) Young Male with a history of poor impulse control Protective and Risk-mitigating factors: 1) Raji is no longer thinking of suicide 2) Raji is physically health/does not have a terminal illness 3) Raji does not have chronic severe pain Treatment Plan Update: 1) D/C PRN Propranolol 2) D/C PRN Quetiapine 3) Reduce Quetiapine Fumarate to 50 mg at bedtime 4) Add PRN Thorazine 5) Add regualr bedtime Thorazine 6) Continue Methadone HCl 30 MG daily at 8:00 AM Continue Nicotine 21 MG DAILY Nicotine 2 MG Q2P PRN cravings Continue Sertraline HCl 100 MG Q0800
[2017-07-16 12:10] VITALS: BP 125/50
--- NOTE | 2017-07-16 14:21 | SOCIAL WORKER PROG NOTE PSYCH ---
Social Work Progress Note Progress Note Quality Control Specialist met with Raji today. He reported to be feeling somewhat anxious, rating his anxiety as a 6 out of 10. He did not identify any specific triggers but stated that he believed he was feeling anxious due to not sleeping well as his room mate was noisy last night. He stated that he was not feeling depressed, rating his depressiona as a 4 out of 10. Raji was agreeable to this teletypewriter operator sending a referral to [facility]. He also asked this teletypewriter operator if Joan Jordan could contact his public relations studies director, Dick Mendoza ([phone] ext. [phone]) as well as Mason Mann ([phone]. [phone]) who works with the [facility] at [facility], as he has court on July 22 and believes that he will not be able to attend due to being admitted. He signed releases for both Dick Mendoza, Mason Mann and [facility]. Quality Control Specialist faxed the followin. Transfer Request for [place] methadone to be transferred the [facility] for if/when he is admitted to the [facility]. 2. Referral to [facility] Quality Control Specialist called: 1. Cassi at [facility] to inquire about whether Raji would be able to be prescribed Suboxone at [place]. Cassi stated that he would be able to be prescribed it there but that he would need to come with a 2-week supply as it may take some time to get him an appointment with [place]'s Suboxone prescriber. She also stated that it is most likely that Raji would be able to get admitted sooner if he were to be on Suboxone rather than if he were to have his Methadone switched to the [facility]. She anticipated that some male beds would be opening up in the next few days. 2. Alice at [facility]. Quality Control Specialist left Alice a message to confirm that she received the referral that was faxed today. Additionally, teletypewriter operator spoke with Dr. Torres about her conversation with Cassi, specifically, the confirmation that Kevin would be able to prescribe him Suboxone. Quality Control Specialist also asked Dr. Torres to please place an order for a PPD for Raji as he would need one in order to go to rehab.
[2017-07-16 15:56] VITALS: BP 135/66
[2017-07-17 08:26] VITALS: BP 102/52
--- NOTE | 2017-07-17 11:48 | SOCIAL WORKER PROG NOTE PSYCH ---
Social Work Progress Note Progress Note Production Recovery Operator called Kevin this morning to speak with Cassi in admissions. She had asked the gag writer yesterday, to call to update her on whether or not Raji would be switching to Suboxone. Production Recovery Operator spoke with Cassy in admissions, who requested that gag writer send updated clincial information as she was concerned about the fact that Raji had expressed SI prior to being admitted to [facility]. Production Recovery Operator faxed updated progress notes from the Respiratory Therapy Director and Psychiatrist. Production Recovery Operator met with Raji in his room this afternoon. He reported to be feeling okay "mentally", albeit somewhat poorly physically due to not receiving his Methadone today while he transitions to Suboxone. Raji stated that he was just "taking it easy" by staying in his room and laying down since he was not feeling well. He stated that he slept well but had felt a bit "foggy" from the Thorazine he took yesterday for anxiety. He rated his anxiety as a 4 out 10 today and his depression as a 3 out of 10. He brightened when gag writer told him about the progress with [facility]. UPDATE: Production Recovery Operator sat with Raji while he was screened by [facility] via phone this afternoon. [facility] accepted Raji for admission on July 21. Production Recovery Operator called [facility] to set up transportation for Friday. Production Recovery Operator emphasized the importance of Raji arriving at [facility] before 2PM on Friday. Additionally, gag writer called [facility] to inquire about the name of the attending physician at [facility] who would be handling Raji's care. Cassy in admissions gave the gag writer the names of the two main providers. These are: Dr. Gene [facility] MD and Mary Pugh APRN.
[2017-07-17 12:10] VITALS: BP 111/52
--- NOTE | 2017-07-17 12:24 | CP SOUTH PROGRESS NOTE PSYCH ---
Psych (Inpt) Progress Note Progress Note Vital Signs Date Time Temp Pulse B/P Pulse O2 Flow FiO2 Ox Rate 07/17 1210 83 111/52 07/17 0826 97.4 91 102/52 07/16 1556 74 135/66 The patient's progress and treatment plan (including aftercare plans) were reviewed in the treatment team meeting this morning (Treatment team included: Nursing, Social work, Group therapy and activity therapy staff, and psychiatrist ). Mental Status Examination: Raji was alert. He was oriented to time, place, and person. He was cooperative, he reported that he is doing well with minimal withdrawals There was a slightly anxious about the switch that is going to happen today between his methadone and Suboxone Raji denied having hallucinations, he denied suicidal or homicidal ideation, he is interested in follow-up treatment at [facility] if possible, There were no abnormal movements. He did not not shown signs of agitation. His speech was within normal limits, mood was "good"/not that depressed. Ladonna thoughts were logical and linear. He denies SI or HI. He denies any perceptual disturbances. Cognition was grossly intact. Summary and Risk Assessment: Raji Neri is a 26-year-old single white male who was admitted to the inpatient psychiatric unit at [facility] on 07/10/2017 for thoughts of suicide. Raji's mood has improved significantly, he is no longer voicing thoughts of suicide. The identified risk factors for suicide and/or violence/homicide are: 1) Raji was voicing thoughts of suicide recently 2) Raji has a history of severe substance use disorder 3) Raji-reportedly- has a history of a suicide attempt 4) Raji has been isolated/minimal social support/Lives alone, 5) Young Male with a history of poor impulse control Protective and Risk-mitigating factors: 1) Raji is no longer thinking of suicide 2) Raji is physically healthy/does not have a terminal illness 3) Raji does not have chronic severe pain 4-does not have access to guns 5-showing signs of hopefulness and motivation for change, 6-denies that his life is worthless, 7-no command hallucinations Treatment Plan Update: 1) continue PRN Thorazine 2) start Suboxone 8 mg under the tongue tonight at 8 PM 3) continue quetiapine Fumarate 50 mg at bedtime 4) Nicotine 2 MG Q2P PRN cravings 5) continue regualr bedtime Thorazine 6) DC methadone Continue Nicotine 21 MG DAILY Continue Sertraline HCl 100 MG Q0800
--- NOTE | 2017-07-17 13:28 | SOCIAL WORKER PROG NOTE PSYCH ---
Social Work Progress Note Progress Note Completed online CT P auth.
[2017-07-17 16:08] VITALS: BP 125/61
[2017-07-17 19:40] VITALS: BP 128/61
--- NOTE | 2017-07-18 07:48 | CP SOUTH PROGRESS NOTE PSYCH ---
Psych (Inpt) Progress Note Progress Note Vital Signs: Blood pressure: 128/69 mmHg; pulse: 88 bpm The patient's progress and treatment plan (including aftercare plans) were reviewed in the treatment team meeting this morning (Treatment team included: Nursing, Social work, Group therapy and activity therapy staff, and psychiatrist ). Mental Status Examination: Raji was alert & oriented to time, place, and person. He was calm and cooperative. He reported minimal withdrawals after starting Suboxone last night. Raji denied having hallucinations, he denied suicidal or homicidal ideation There were no signs of agitation. His speech was within normal limits, mood was "good"/not that depressed. Ladonna thoughts were logical and linear. Cognition was grossly intact. Summary and Risk Assessment: Raji Neri is a 26-year-old single White male who was admitted to the inpatient psychiatric unit at [facility] on 07/10/2017 for thoughts of suicide. Raji's mood has improved significantly, he is no longer voicing thoughts of suicide. He was switched from Methadone to Suboxone with relatively minimal withdrawls The identified risk factors for suicide and/or violence/homicide are: 1) Raji was voicing thoughts of suicide recently 2) Raji has a history of severe substance use disorder 3) Raji-reportedly- has a history of a suicide attempt 4) Raji has been isolated/minimal social support/Lives alone, 5) Young Male with a history of poor impulse control Protective and Risk-mitigating factors: 1) Raji is no longer thinking of suicide 2) Raji is physically healthy/does not have a terminal illness 3) Raji does not have chronic severe pain 4-does not have access to guns 5-showing signs of hopefulness and motivation for change, 6-denies that his life is worthless, 7-no command hallucinations 8) Raji will be going directly from the inpatient psychiatric unit to [facility] Treatment Plan Update: 1) continue PRN Thorazine 2) Continue Suboxone 8 mg under the tongue (moved to 8:00 AM) 3) continue quetiapine fumarate 50 mg at bedtime 4) Nicotine 2 MG Q2P PRN cravings 5) continue regualr bedtime Thorazine 50 mg 6) Continue Nicotine 21 MG DAILY Continue Sertraline HCl 100 MG Q0800 Discharge Directly to [facility] Friday
--- NOTE | 2017-07-18 11:19 | SOCIAL WORKER PROG NOTE PSYCH ---
Social Work Progress Note Progress Note Received a call from Cassi at [facility] who said they are pretty sure there will be a bed for Raji on Friday, but they will call and confirm Friday morning. I reported that we already scheduled his ride and didn't want to send him off if there was no bed. She stated in that case they would definetely prioritize him and we should not cancel his transportation. She said meds can be called into [facility] @ [phone]. 2 weeks worth of meds should be good. Raji was participating in some groups today. Reports doing a little better since taking another dose of Suboxone. He is getting adjusting with the medication change. We reviewed the plan to discharge on Friday. He is eager to go. No particular concerns that he shared today. Just kept saying "everything will work out." His plan after [facility] is to find a Sober House. He can then look for work. [employer] would cover 2 months of rent for him.
[2017-07-18 11:59] VITALS: BP 128/69
[2017-07-18] MEDS ORDERED: QUETIAPINE FUMA50 M1 PO (13:58)
[2017-07-18] MEDS ORDERED: CHLORPROMAZINE25 M2 PO (13:58)
[2017-07-18] MEDS ORDERED: MULTIVITAMINS1 EAC9 PO (13:58)
[2017-07-18] MEDS ORDERED: ZOLOFT100 M1 PO (13:58)
[2017-07-18] MEDS ORDERED: NICORELIEF2 MG PO (13:58)
[2017-07-18] MEDS ORDERED: NICOTINE PATCH1 EAC3 TOP (13:58)
--- NOTE | 2017-07-18 14:00 | Patient Discharge Instructions ---
Psych Discharge Inst General Discharge Information Reason for Admission: 26-year-old single white male who presented to the emergency room with thoughts of suicide. Psy Discharge Primary Diag+ F32.9: Unspecified Depres F11.20 Opioid Use Disorde Psy Discharge Secondary Diag+ [id number] Use Disorder Summary Tests/Major Procedures There were no significant abnormalities in the patient's tests Studies Pending at DC: No studies pending at the time of discharge Patient Instructions Contact Information Your Psychiatrist on [facility] was Mo Torres MD * If you are experiencing an emergency related to this hospitalization, please call [phone] to contact the treating psychiatrist or the psychiatrist-on- call. * To Request a copy of your medical records, please contact the Medical Records Department at [phone]. * To request results of studies pending at the time of discharge, please call [phone]. * Continue your Medications until directed to stop by your Healthcare provider. General Medication Information Please continue to take your new medications and your continued home medications , unless otherwise indicated on your discharge medication list, or unless directed by your MD or LOG GRADER to stop them. Special Instructions Diet Regular Activity Normal - Tobacco Use Treatment Offered Post DC Medications Offered: Script Given-See Med List Post DC Tobacco Treatment Plan: Other Tobacco Tx Pgm - EtOH/Drug Use D/O Treatment Offered Post DC Medications Offered: Script Given-See Med List Post DC EtOH/SubAbuse TX Plan: Other SubAbuse/Dual Pgm Metabolic Screening Patient on a neuroleptic(s) . Enter below results for Hemoglobin A1C, and lipid panel if obtained during the last 365 days. BMI: Blood Pressure: 128/69 Laboratory Results From [facility] (If applicable): Lab Cholesterol 136 MG/DL 07/09/171906 HDL Cholesterol 57 mg/dL 07/09/171906 Hemoglobin A1c 5.4 % 07/09/171906 LDL Cholesterol, Calc 61 mg/dL L 07/09/171906 Triglycerides 91 mg/dL 07/09/171906 Advance Directives Does the Patient have Medical Advance Directives No/Refused further info Does Pt have Psychiatric Advance Directives? No/Refused further info Does Patient have a Designated Surrogate Decision Maker: No Information About Psychiatric Advance Directives Provided? Refused Discharge Plan Post Hospital Treatment Plan: [facility]
[2017-07-18] MEDS ORDERED: SUBOXONE 8 MG-1 EACH SL (14:29)
[2017-07-18 15:54] VITALS: BP 143/73
[2017-07-18 19:43] VITALS: BP 142/73
[2017-07-19 07:57] VITALS: BP 127/64
--- NOTE | 2017-07-19 11:00 | CP SOUTH PROGRESS NOTE PSYCH ---
Psych (Inpt) Progress Note Progress Note Include the following elements, when applicable: Involvement in the active treatment of the patient with behavioral observations of the patient and the patient's response to the treatment. Review of the ongoing treatment process in the context of the treatment plan. Indication of how multi-disciplinary staff members are carrying out the treatment plan. Plans for future interventions and recommendations for revision of the treatment plan. Liaison with other physicians/providers. Progress Note: Pt notes that he very future to [facility] on Friday. He was noted to be activated, agitated and uncomfortable this morning. He requesting increase in suboxone to 10mg (8mg +2mg). Feels that thorazine too sedating. Otherwise, denies SI or HI. Current Medications Sig/Nilay Start time Last Medication Dose Route Stop Time Status Admin Acetaminophen 650 MG .STK-MED ONE 07/18 2124 DC PO 07/18 212 Acetaminophen 650 MG .STK-MED ONE 07/18 1604 DC PO 07/18 1605 Acetaminophen 650 MG Q6P PRN 07/10 1215 AC 07/18 PO 2124 Al Hydroxide/Mg 30 ML Q4-6 PRN PRN 07/10 1215 AC Hydroxide PO Benztropine Mesylate 1 MG Q6P PRN 07/10 1215 AC PO Benztropine Mesylate 1 MG Q6P PRN 07/10 1215 AC IM Buprenorphine/ 1 TAB 0800 /04 0800 AC Naloxone SL Buprenorphine/ 1 TAB 0800 / 0800 AC 07/19 Naloxone SL 0814 Buprenorphine/ 1 TAB ONCE ONE 07/18 1230 DC 07/18 Naloxone SL 07/18 1231 1227 Buprenorphine/ 2 TAB ONCE ONE 07/18 1215 CAN Naloxone SL 07/18 1216 Chlorpromazine 25 MG Q4 HRS NEEDED PRN 07/18 1215 AC 07/19 PO 1033 Chlorpromazine 50 MG AT BEDTIME 07/16 2200 DC 07/18 PO 2123 Chlorpromazine 50 MG Q6-PRN PRN 07/16 1030 DC 07/17 PO 1401 Haloperidol 5 MG Q6P PRN 07/10 1215 AC PO Haloperidol 5 MG Q6P PRN 07/10 1215 AC IM Hydrocortisone 1 RUTH BID 07/10 2200 AC 07/15 TOP 212 Ibuprofen 800 MG .STK-MED ONE 07/18 1842 DC PO 07/18 1843 Ibuprofen 800 MG .STK-MED ONE 07/18 1212 DC PO 07/18 1213 Ibuprofen 800 MG TIDPRN PRN 07/13 1015 AC 07/19 PO 1033 Magnesium Hydroxide 30 ML AT BEDTIME PRN 07/10 1215 AC PO Nicotine 21 MG DAILY 07/11 1610 AC 07/19 TOP 0930 Nicotine 2 MG Q2P PRN 07/10 1215 AC 07/19 PO 0930 Quetiapine Fumarate 100 MG AT BEDTIME 07/19 2200 AC PO Quetiapine Fumarate 50 MG AT BEDTIME 07/16 2200 DC 07/18 PO 2123 Sertraline HCl 100 MG 0800 07/15 0800 AC 07/19 PO 0813 Vital Signs Date Time Temp Pulse Resp B/P B/P Pulse O2 O2 Flow FiO2 Mean Ox Delivery Rate 07/19 0757 97.2 99 127/64 07/18 1943 99.2 88 142/73 07/18 1554 93 143/73 07/18 1159 88 128/69 MSE General appearance: good hygiene and grooming, looked uncomfortable; Attitude: cooperative; Eye contact: appropriate; Movement: no psychomotor agitation or slowing; Speech: nl fluency, nl rate/rhythm, nl volume, nl prosody; Mood: "OK" Affect: irritable, flat, appropriate, constricted, non-labile, congruent; Thought process: linear and goal-directed; Thought content: denied SI or HI, no paranoid ideation; Perception: denied hallucinations- auditory, visual, does not appear to be responding to internal stimuli; I/J: limited A/P: Pt with bipolar disorder with SI c/b substance use very future oriented to rehab on Friday. - Increase seroquel back to 100mg and d/c thorazine - Incresaed suboxone to 10mg -Otherwise continue current medication regimen -Encourage integration into the milieu
[2017-07-19 12:06] VITALS: BP 136/69
[2017-07-19 15:39] VITALS: BP 123/63
[2017-07-19 19:47] VITALS: BP 136/72
[2017-07-20 08:09] VITALS: BP 121/70
--- NOTE | 2017-07-20 11:55 | CP SOUTH PROGRESS NOTE PSYCH ---
Psych (Inpt) Progress Note Progress Note Include the following elements, when applicable: Involvement in the active treatment of the patient with behavioral observations of the patient and the patient's response to the treatment. Review of the ongoing treatment process in the context of the treatment plan. Indication of how multi-disciplinary staff members are carrying out the treatment plan. Plans for future interventions and recommendations for revision of the treatment plan. Liaison with other physicians/providers. Progress Note: Pt notes much more comfortable since increase in suboxone this morning. He reports some NMs overnight which happen from time to time. Denies SI or HI. Very future oriented. Current Medications Sig/Nilay Start time Last Medication Dose Route Stop Time Status Admin Acetaminophen 650 MG Q6P PRN 07/10 1215 AC 07/18 PO 2124 Al Hydroxide/Mg 30 ML Q4-6 PRN PRN 07/10 1215 AC Hydroxide PO Benztropine Mesylate 1 MG Q6P PRN 07/10 1215 AC PO Benztropine Mesylate 1 MG Q6P PRN 07/10 1215 AC IM Buprenorphine/ 1 TAB 0800 07/20 0800 AC 07/20 Naloxone SL 0816 Buprenorphine/ 1 TAB 0800 07/19 0800 AC 07/20 Naloxone SL 0816 Chlorpromazine 50 MG Q4P PRN 07/20 1115 AC PO Chlorpromazine 25 MG Q4 HRS NEEDED PRN 07/18 1215 DC 07/20 PO 0854 Haloperidol 5 MG Q6P PRN 07/10 1215 AC PO Haloperidol 5 MG Q6P PRN 07/10 1215 AC IM Hydrocortisone 1 RUTH BID 07/10 2200 AC 07/19 TOP 2120 Ibuprofen 800 MG .STK-MED ONE 07/19 1837 DC PO 07/19 1838 Ibuprofen 800 MG TIDPRN PRN 07/13 1015 AC 07/20 PO 0857 Magnesium Hydroxide 30 ML AT BEDTIME PRN 07/10 1215 AC PO Melatonin 6 MG AT BEDTIME 07/20 2200 AC PO Nicotine 2 MG .STK-MED ONE 07/19 1838 DC PO 07/19 1839 Nicotine 2 MG .STK-MED ONE 07/19 1254 DC PO 07/19 1255 Nicotine 21 MG DAILY 07/11 1610 AC 07/20 TOP 0814 Nicotine 2 MG Q2P PRN 07/10 1215 AC 07/20 PO 0855 Quetiapine Fumarate 100 MG AT BEDTIME 07/19 2200 AC 07/19 PO 2120 Sertraline HCl 100 MG 0800 07/15 0800 AC 07/20 PO 0814 Vital Signs Date Time Temp Pulse Resp B/P B/P Pulse O2 O2 Flow FiO2 Mean Ox Delivery Rate 07/20 808 97.4 84 121/70 07/19 1947 98.2 85 136/72 07/19 1539 89 123/63 07/19 1206 96 136/69 MSE General appearance: good hygiene and grooming; Attitude: cooperative; Eye contact: appropriate; Movement: no psychomotor agitation or slowing; Speech: nl fluency, nl rate/rhythm, nl volume, nl prosody; Mood: "alright" Affect: slightly irritable, flat, appropriate, constricted, non-labile, congruent; Thought process: linear and goal-directed; Thought content: denied SI or HI, no paranoid ideation; Perception: denied hallucinations- auditory, visual, does not appear to be responding to internal stimuli; I/J: limited A/P: Pt with bipolar disorder with SI c/b substance use very future oriented. - Increased melatonin to 6mg and thorazine PRNs to 50mg -Otherwise continue current medication regimen -Encourage integration into the milieu
[2017-07-20 12:04] VITALS: BP 132/70
[2017-07-20 15:33] VITALS: BP 126/68
[2017-07-20 19:27] VITALS: BP 121/67
--- NOTE | 2017-07-21 07:53 | CP SOUTH PROGRESS NOTE PSYCH ---
Psych (Inpt) Progress Note Progress Note Vital Signs: Blood Pressure 130/69 07/21/17 0811 Pulse Rate 93 07/21/17 0811 Temperature 97.5 07/21/17 0811 Raji reported that he had poor sleep and nightmares the previous 2 nights, otherwise in good spirits and excited about leaving to [facility] this morning. He was cooperative, showed good eye contact, and normal psychomotor activirty/no psychomotor agitation or slowing. His speech was normal in fluency, rate, rhythm, volume, and prosody. He said his mood has been "alright. His affect was slightly constricted. Raji denied wishing or thinking of suicide. He denied violent thoughts or thoughts of homicide. He was future- oriented, showed good hygiene and grooming; Thought process: linear and goal-directed; Thought content: denied SI or HI, no paranoid ideation; Perception: denied hallucinations- auditory, visual, does not appear to be responding to internal stimuli Summary and Risk Assessment: Raji Neri is a 26-year-old single White male who was admitted to the inpatient psychiatric unit at on 07/10/2017 for thoughts of suicide. Raji was switched over from methadone to Suboxone while he was on the inpatient psychiatric unit with minimal discomfort. Raji's mood has improved significantly, he is no longer voicing thoughts of suicide. Raji's initial plan was to go to [facility]. This plan was finally realized on Friday, July 21, 2017. Raji was excited about discharge and aftercare plans. The identified risk factors for suicide and/or violence/homicide are: 1) Raji was voicing thoughts of suicide recently 2) Raji has a history of severe substance use disorder 3) Raji-reportedly- has a history of a suicide attempt 4) Raji has been isolated/minimal social support/Lives alone, 5) Young Male with a history of poor impulse control Protective and Risk-mitigating factors: 1) Raji is no longer thinking of suicide 2) Raji is physically healthy/does not have a terminal illness 3) Raji does not have chronic severe pain 4) does not have access to guns 5) Raji is now future-oriented/showing signs of hopefulness and motivation for change, 6) denies that his life is worthless, 7) no command hallucinations 8) Raji is going directly from the inpatient psychiatric unit to [facility] 9) No family history of suicides Treatment Plan Update: Discharge to [facility]
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
[2017-07-21] MEDS ORDERED: SUBOXONE 2 MG-1 EACH SL (07:56)
[2017-07-21 08:11] VITALS: BP 130/69
[2017-07-21] MEDS ORDERED: QUETIAPINE FUM100 M1 PO (08:55)
--- NOTE | 2017-07-21 09:10 | SOCIAL WORKER PROG NOTE PSYCH ---
See Addendum Social Work Progress Note Progress Note SW met with Pt. Pt presents as calm, pleasant, OX3 and hopeful regarding discharge to [facility] today. Pt denies safety concerns. Pt reports he has been depressed but denies SI with last SI 4yrs ago when he was homeless living in a tent. Pt reports starting Zoloft has improved mood. Pt reports at this point addressing his substance abuse as his primary need. Pt will be picked up today by [facility] to [facility] ([facility] [phone]) to transport to [facility] for 45 day rehab stay.
== END 2017-07-21 10:03 | DRG 754 ==
LOC: ERH 18:02 → CP SOUTH 07-10 12:26 → ERHI 07-10 12:26 → ENRESERV 07-10 13:44 → ENTRNSPT 07-10 14:02 → CP SOUTH 07-10 14:27 → EDTRNSPTSTS 07-10 14:29 → EDTRNSPT 07-10 14:29 → CMPTRNSPT 07-10 14:35 → CP SOUTH 07-11 10:21
PROVIDERS: Physician Assistant Medical
DX: F32.9 Major depressive disorder, single episode, unspecified (principal); F11.90 Opioid use, unspecified, uncomplicated; F15.90 Other stimulant use, unspecified, uncomplicated
CPT/HCPCS: 36415; 80307; 81003; 87389; 93005; 93010; G0463; G0480; J0131; J3230; Q2036